=== PATIENT | female | born 1955 | race Caucasian/White ===

== ENCOUNTER → 2017-01-26 | Outpatient (CLI) | payer MEDICARE ==
[~2017-01-26] MED LIST: ARGI500T4 PO; ASP325TEC PO; ASP81TEC PO; ASPI-504 PO; ATOR40TA70 PO; Atorvastatin Calcium PO; BUDE10.22 IH; CETI10TA20 PO; CLOP75TA PO; CODE-54 PO; DIPH25TA31 PO; GABA-486 PO; HYDR-757 PO; NTR.4SL SL; ONDA8TAB6 PO; OXYC1TAB87 PO; PANT20TA3 PO; RABE20TA PO; ROSU20TA14 PO; RT-ALBUINH IH; SERT50TA9 PO; SIMV40TA4 PO; TIOT18CA IH; TRM50T PO; ZOLP5TAB7 PO; [UNRECOGNIZED DRUG - OTHER] PO
--- NOTE | 2017-01-27 19:34 | Diagnostic Imaging Report ---
Bilateral screening mammogram The current study was also evaluated with a Computer Aided Detection (CAD) system. Indication: Screening. No current complaints stated on the questionnaire. COMPARISON: 11/27/15 FINDINGS: Heterogeneously dense parenchyma is seen bilaterally. There is a classroom monitor seen in the left breast. There is benign-appearing calcifications. When compared to the prior study no significant change is seen. The background dense parenchyma may decrease mammographic sensitivity. Allowing for technique and positional differences, no suspicious change is seen. IMPRESSION: Dense breasts with no definite change. ACR BI-RADS Category 2: Benign findings. Result letter will be mailed to the patient. Note: At least 10% of breast cancer is not imaged by mammography. Dictated by: Dictated on workstation # [id number]
== END ==
LOC: RAD 09:57
PROVIDERS: ATTEND Nurse Practitioner Family
DX: Z12.31 Encounter for screening mammogram for malignant neoplasm of breast (principal)
CPT/HCPCS: 77067

== ENCOUNTER → 2017-03-31 | Outpatient (CLI) | payer MEDICARE | LOC: CARD 09:07 | PROVIDERS: ATTEND Nurse Practitioner Family | DX: I25.10 Atherosclerotic heart disease of native coronary artery without angina pectoris (principal); I34.0 Nonrheumatic mitral (valve) insufficiency; R00.2 Palpitations | CPT/HCPCS: 93306 ==

== ENCOUNTER → 2017-04-05 | Outpatient (CLI) | payer MEDICARE ==
[~2017-04-05] MED LIST changes: +CATHETER FLUSH 10 ML SYR IV PRN; +REGADENOSON 0.4 MG/5 ML SYR (LEXISCAN) IV ONE
[2017-04-05 10:16] VITALS: BP 115/63
[2017-04-05 10:19] VITALS: BP 123/62
== END ==
LOC: CARD 08:07
PROVIDERS: ATTEND Nurse Practitioner Family
DX: I25.10 Atherosclerotic heart disease of native coronary artery without angina pectoris (principal); I34.0 Nonrheumatic mitral (valve) insufficiency; R00.2 Palpitations
CPT/HCPCS: 78452; 93017